=== PATIENT | female | born 1955 | race African-American/Black ===

== ENCOUNTER 2016-08-03 15:08 | Emergency (ER) | payer MEDICARE ==
[~2016-08-03] VITALS: Ht 170.2 cm; Wt 78.2 kg
[~2016-08-03 15:08] MED LIST: IRON325 M1 PO; LEVOTHYROXIN125 MCG PO; LYRICA50 MG PO; MAXZIDE-2537.5 MG/TA PO; METFORMIN500 MG PO; NORVASC10 M1 PO; OS-CAL 500500 M1 PO; POTASSIUM CHLO20 ME1 PO; TRAMADOL HCL50 MG PO; VITAMIN D1000 UNIT PO
[2016-08-03] MEDS ORDERED: NAPROSYN500 MG PO (15:58)
[2016-08-03 16:03] VITALS: BP 116/76
== END 2016-08-03 16:09 | disposition home or self-care (01) ==
LOC: ED 15:08
DX: S53.401A Unspecified sprain of right elbow, initial encounter (principal); I11.0 Hypertensive heart disease with heart failure; I50.9 Heart failure, unspecified; E11.9 Type 2 diabetes mellitus without complications; K21.9 Gastro-esophageal reflux disease without esophagitis; F17.210 Nicotine dependence, cigarettes, uncomplicated; W01.0XXA Fall on same level from slipping, tripping and stumbling without subsequent striking against object, initial encounter; Y92.009 Unspecified place in unspecified non-institutional (private) residence as the place of occurrence of the external cause

== ENCOUNTER 2020-12-12 06:49 | Day surgery (SDC) | payer MEDICARE ==
[~2020-12-12] VITALS: Ht 170.2 cm; Wt 84.4 kg
[~2020-12-12 06:49] MED LIST changes: +24HR ALLERGY R180 MG PO; +CRESTOR10 MG PO; +GABAPENTIN100 MG PO; +MELOXICAM15 MG PO; +NAPROSYN500 MG PO; +PROAIR HFA IN; +TRAMADOL HCL E200 M1 PO; +TRAZODONE50 MG PO; +VITAMIN B-121000 MCG PO
[2020-12-12 09:30] VITALS: BP 107/58
== END 2020-12-12 09:58 | disposition home or self-care (01) ==
LOC: ENDO 06:49
PROVIDERS: ATTEND Surgery
PROC: 0DBH8ZX Excision of Cecum, Via Natural or Artificial Opening Endoscopic, Diagnostic (ICD-10-PCS; principal; 2020-12-12)
DX: Z12.11 Encounter for screening for malignant neoplasm of colon (principal); C18.0 Malignant neoplasm of cecum; K57.30 Diverticulosis of large intestine without perforation or abscess without bleeding; Q43.8 Other specified congenital malformations of intestine; K64.8 Other hemorrhoids; E11.9 Type 2 diabetes mellitus without complications; I10 Essential (primary) hypertension; J45.909 Unspecified asthma, uncomplicated; Z86.010 Personal history of colon polyps; Z79.84 Long term (current) use of oral hypoglycemic drugs; Z88.0 Allergy status to penicillin

== ENCOUNTER 2021-01-19 10:28 | Inpatient (IN) | payer MEDICARE ==
[~2021-01-19] VITALS: Ht 170.2 cm; Wt 84.8 kg
[2021-01-19] MEDS ORDERED: FISH OIL1000 MG PO (11:10)
[2021-01-19] MEDS ORDERED: PRILOSEC20 MG/CAP PO (11:10)
[2021-01-23] VITALS (8 sets, daily range): BP systolic 80–109; BP diastolic 44–64
--- NOTE | 2021-01-23 13:08 | NUR ---
PT ARRIVED VIA STRECTHER ACCOMPANIED BY A BOYD RN. PT SLIGHTLY DROWSY BUT ABLE TO FOLLOW COMMANDS AND ANSWER QUESTIONS. A&O. O2 VIA NC @2L IN PLACE. PT CURRENTLY HYPOTENSIVE BUT ASYMPTOMATIC. CLEAR BREATH SOUNDS UPON AUSCULTATION. ABD BINDER APPLIED BY THIS COO. DRESSING NOTED TO MIDLINE INCISION; PLUS 3 LAPAROSCOPIC INCISIONS REPORTED BY A BOYD RN; DRESSING CDI; X2 MICHELLE DRAINS TO LT SIDE OF ABD; BOTH LABELED #1 #1 WITH MOST OUTPUT. SALDIVAR CATHETER DRAINING VIA GRAVITY WITH [place] COLORED OUTPUT; IMPORVED PER REPORT; EPISODE OF ONE IRRIGATION PREFORMED DOWN IN PACU. HYPOACTIVE BOWEL SOUNDS. LAST BM REPORTED YESTERDAY. BILATERAL SCD IN PLACE. #20G TO RAC HEALTHY AND PATENT; WITH ORDERED IVF INFUSING. ORIENTED PT TO ROOM. ASSESSMENT COMPLETED. DISCUSSED POC. CALL LIGHT WITHIN REACH.
[2021-01-23 13:47] LABS: HEMATOCRIT 27.1 % (37.0-47.0)
--- NOTE | 2021-01-23 14:20 | NUR ---
FAMILY MEMBER AT BEDSIDE VISITING PATIENT.
--- NOTE | 2021-01-23 17:47 | NUR ---
PT C/O PAIN; SCHEDULED IV TORADOL GIVEN. NO OTHER NEEDS AT THIS TIME. CALL LIGHT WITHIN REACH
--- NOTE | 2021-01-23 18:11 | NUR ---
SALDIVAR CATHETER BEING IRRIGATED BY Shy HUNG LPN AT THIS TIME DUE TO DECREASED URINE OUTPUT.
--- NOTE | 2021-01-23 20:00 | NUR ---
PATIENT RESTING IN BED AT THIS TIME. AWAKE ALERT AND ORIENTEDX3. PATIENT WITH O2 VIA NASAL CANNULA IN PLACE WITH O2 SATS AT 100%. PATIENT IS NPO EXCEPT FOR ICE CHIPS. PATIENT WITH IV SITE TO RIGHT AC SITE WITH IVF D51/2NS PATENT AND INFUSING AT 150CC/HR. SITE IS HEALTHY AT THIS TIME. SALDIVAR CATH PATENT AND DRAINING TEA COLORED URINE WITH SEDIMENT IN TUBING. 2 MICHELLE DRAINS INTACT TO LEFT ABD. #1 DRAINED FOR 150CC OF CLOUDY SEROUS FLUID. #2 DRAINING BLOODY FLUID. ABD DRESSING INTACT WITH ABD BINDER IN PLACE. SCD'S IN PLACE. ENCOURAGED USE OF IS Q1H WHILE AWAKE IN REPS OF 10-VERBALIZES UNDERSTANING. SAFETY PRECAUTIONS REINFORCED. CALL LIGHT IN REACH. WILL CONT TO MONITOR.
--- NOTE | 2021-01-23 22:30 | NUR ---
PATIENT ASSISTED OOB TO THE CHAIR-STEADY GAIT USING HER PILLOW TO SPLINT HER INCISION. PATIENT ABLE TO SIT UP FOR APPROX 30 MINUTES AND TOLERATED WELL. USING HER IS INSTRUCTED IN REPS OF 10 OR MORE. O2 SATS ARE IN HIGH 90'S-97-98 ON ROOM AIR. SALDIVAR PATENT AND DRAINING CLOUDY TEA COLORED URINE. ABD BINDER REMAINS IN PLACE. IVF D51/2 NS INFUSING OREDED VIA RAC SITE. ANTIBIOTICS GIVEN ORDERED. ASSISTED BACK INTO BED AND PATIENT MEDICATED FOR PAIN WITH DILAUDID 1MG IVP FOR 6/10 PAIN SCALE. SCD'S [address] PL[address] MICHELLE IN PLACE TO LEFT ABD, CALL LIGHT IN REACH. WILL CONT TO MONITOR.
--- NOTE | 2021-01-23 23:54 | NUR ---
PATIENT RESTING IN BED AT THIS TIME-STATES THAT HER PAIN IS NOW 3-MEDICATED WITH TORADOL 15MG IVP ORDERED. IVF PATENT AND INFUSING VIA RAC SITE AT 150CC/HR. SALDIVAR PATENT AND DRAINING ADAM U RINE WITH SEDIMENT. O2 OFF WITH O2 SAT OF 98%. MICHELLE DRAINS INTACT AND DRAINING CLOUDY SEROUS FLUID. SAFETY PRECAUTIONS REINFORCED. WILL CONT TO MONITOR.
[2021-01-24] VITALS: BP 94/57
--- NOTE | 2021-01-24 01:42 | NUR ---
PATIENT RESTING IN BED-MICHELLE DRAIN #1 DRAINED FOR 75CC OF PINK TINGED FLUID AND MICHELLE DRAIN#2 DRAINED FOR 10CC OF BLOODY DRAINAGE. MEDICATED PATIENT WITH ZOFRAN 4MG IVP FOR NAUSEA AND WITH DILAUDID 1MG IVP FOR POST-OP PAIN. IVF PATENT AND DRAINING TEA COLORED URINE WITH SEDIMENT. ABD BINDER IN PLACE. CALL LIGHT IN REACH. WILL CONT TO MONITOR.
--- NOTE | 2021-01-24 03:38 | NUR ---
PATIENT RESTING IN BED AT THIS TIME-AWAKE WITH NO COMPLAINTS. IVF D51/2NS PATENT AND INFUSING VIA RAC SITE AT 150CC/HR. SALDIVAR IS PATENT AND DRAINING TEA COLORED URINE WITH SEDIMENT. MICHELLE DRAINSX2 REMAIN IN PLACE. ABD BINDER IN PLACE. SCD'S ORDERED. REMAINS NPO EXCEPT ICE CHIPS. CALL LIGHT IN REACH. WILL CONT TO MONITOR.
[2021-01-24 04:00] VITALS: BP 105/60
[2021-01-24 05:21] LABS: HEMATOCRIT 25.1 % (37.0-47.0); HEMOGLOBIN 7.5 g/dl (12.0-16.0); IMMATURE GRANULOCYTES 0.1 % (0.0-5.0); MEAN CELL VOLUME 69.9 fL CALC (80.0-100.0); MEAN CORPUSCULAR HGB 20.9 pG CALC (26.0-32.0); MEAN CORPUSCULAR HGB CONC 29.9 g/dL CAL (32.0-36.0); NEUT# 10.79 thou/uL (2.00-7.15); RED BLOOD COUNT 3.59 mill/uL (4.20-5.60); RED CELL DISTRI WIDTH 20.6 % (11.5-15.5)
[2021-01-24 05:35] LABS: ANION GAP 11 (6-22 (CALC)); BUN 9 mg/dL (8-23); BUN/CREATININE RATIO 12 (12-20 (CALC)); CARBON DIOXIDE 23 mmol/l (22-30); CHLORIDE 107 mmol/l (95-108); CREATININE 0.7 mg/dL (0.5-1.0); GFR > 60 ML/MIN (>=60 (CALC)); GFR FOR AFR.AMER. > 60 ML/MIN (>=60 (CALC)); SODIUM 137 mmol/l (137-146)
--- NOTE | 2021-01-24 06:00 | NUR ---
PATIENT RESTING IN BED. STATES THAT HER PAIN IS UNDER CONTROL AT THIS TIME. TORADOL 15MG IVP GIVEN ORDERED. ANTIBIOTICS GIVEN ORDERED. MICHELLE DRAIN OUTPUT FOR THIS SHIFT WAS MICHELLE#1-270CC OF PINK/PALE SEROUS FLUID. MICHELLE#2-15CC OF BLOODY FLUID. SALDIVAR OUTPUT FOR THIS SHIFT WAS 250CC. IVF D51/2NS INFUSING AT 150CC/HR. O2 SATS AT 96% ON ROOM AIR. CALL LIGHT IN REACH. WILL CONT TO MONITOR.
[2021-01-24 08:16] VITALS: BP 93/51
--- NOTE | 2021-01-24 08:17 | NUR ---
ASSESSMENT DONE. PATIENT IS ALERT AND ORINET X3. PATIENT DENIES PAIN AT THIS TIME. DRESSING IN ABD IS CDI AND ABD BINDER IN PLACE. MICHELLE #1 HAS PINK/PALE SEROUS AND MICHELLE #2 IS BLOODY FLUID . PATIENT USE THE INCENTIVE SPIROMETER UP TO 1000ML. SALDIVAR IS A PATENT WITH TEA COLOR URINE. SCD IN PLACE. ICE CHIPS PROVIDED. PATIENT DENIES ANY OTHER NEEDS AT THIS TIME. CALL LIGHT IN REACH.
--- NOTE | 2021-01-24 12:15 | NUR ---
PATIENT STATED PAIN IN ABD 05/24. MEDICATED PATIENT WITH TORADOL. PATIENT DENIES ANY OTHER NEEDS AT THIS TIME. CALL LIGHT IN REACH.
--- NOTE | 2021-01-24 13:25 | NUR ---
ASSISTED PATIENT TO SIT IN THE RECLINER. PATIENT TOLERATED WELL. PATIENT STATED PAIN MEDICATION HELPED. FAMILY MEMBER IN ROOM. PATIENT DENIES ANY OTHER NEEDS AT THIS TIME. CALL LIGHT IN REACH.
--- NOTE | 2021-01-24 16:00 | NUR ---
PATIENT IS SITTING IN THE RECLINER WITH NO DISTRESS NOTED. PATIENT DENIES NEEDS AT THIS TIME. CALL LIGHT IN REACH.
[2021-01-24 16:10] VITALS: BP 90/52
[2021-01-24 18:58] VITALS: BP 96/54
--- NOTE | 2021-01-24 20:00 | NUR ---
PATIENT RESTING IN BED AT THIS TIME WITH HOB ELEVATED. AWAKE ALERT AND ORIENTEDX3. PATIENT WITH NO COMPLAINTS OF PAIN AT THIS TIME. PATIENT WITH IVF D51/2NS PATENT AND INFUSING VIA RIGHT AC SITE AT 150CC/HR. SITE REMAINS HEALTHY AT THIS TIME. SALDIVAR CATH PATENT AND DRAINING TEA COLORED URINE WITH SEDIMENT. MICHELLE DRAINS TO LEFT ABD INTACT. #1-TEA COLORED, #2-BLOODY. ABD DRESSING IS CDI-NO DRAINAGE NOTED. ABD IS SOFT WITH ACTIVE BS PRESENT. ABD BINDER ADJUSTED. SCD'S IN PLACE. ENCOURAGED US OF IS Q1H WHILE AWAKE. ABLE TO DEMONSTRATE PROPER USE OF THE DEVICE. LUNGS ARE CLEAR. PATIENT CONT TO TAKE ICE CHIPS IN SMALL AMTS-TOLERATED WELL. SAFETY PRECAUTIONS REINFORCED. CALL LIGHT IN REACH. WILL CONT TO MONITOR.
[2021-01-25 00:10] VITALS: BP 116/67
--- NOTE | 2021-01-25 00:19 | NUR ---
PATIENT RESTING IN BED AT THIS TIME-IVF PATENT AND INFUSING VIA RAC AT 150CC/HR. SALDIVAR PATENT AND DRAINING TEA COLORED URINE WITH SEDIMENT-URINE OUTPUT BETTER TONIGHT THAN LAST NIGHT. MICHELLE DRAINS INTACT WITH DECREASED OUTPUT COMPARED TO LAST NIGHT. ABD DRESSING INTACT AND ABD BINDER IN PLACE. CONT TO TAKE ICE CHIPS AND SIPS OF H2O TO TAKE PO MEDS. TORADOL GIVEN SCHEDULED. SCD'S IN PLACE. SAFETY PRECAUTIONS REINFORCED. CALL LIGHT IN REACH. WILL CONT TO MONITOR.
--- NOTE | 2021-01-25 03:55 | NUR ---
PATIENT RESTING IN BED AT THIS TIME WITH EYES CLOSED. RESPS ARE EVEN AND UNLABORED. IVF D51/2NS PATENT AND INFUSING ORDERED VIA RAC SITE-NEW BAG HUNG AND INFUSING AT 150CC/HR. SALDIVAR PATENT AND DRAINING TEA COLORED URINE WITH SEDIMENT. ABD BINDER IN PLACE. MICHELLE DRAINX2 IN PLACE. SCD'S IN PLACE. CALL LIGHT IN REACH. WILL CONT TO MONITOR.
[2021-01-25 04:00] VITALS: BP 111/60
[2021-01-25 05:30] LABS: HEMATOCRIT 24.6 % (37.0-47.0); HEMOGLOBIN 7.4 g/dl (12.0-16.0); MEAN CELL VOLUME 70.1 fL CALC (80.0-100.0); MEAN CORPUSCULAR HGB 21.1 pG CALC (26.0-32.0); MEAN CORPUSCULAR HGB CONC 30.1 g/dL CAL (32.0-36.0); RED BLOOD COUNT 3.51 mill/uL (4.20-5.60); RED CELL DISTRI WIDTH 20.4 % (11.5-15.5)
[2021-01-25 05:41] LABS: ANION GAP 10 (6-22 (CALC)); BUN 6 mg/dL (8-23); BUN/CREATININE RATIO 9 (12-20 (CALC)); CARBON DIOXIDE 24 mmol/l (22-30); CHLORIDE 110 mmol/l (95-108); CREATININE 0.7 mg/dL (0.5-1.0); GFR > 60 ML/MIN (>=60 (CALC)); GFR FOR AFR.AMER. > 60 ML/MIN (>=60 (CALC)); MAGNESIUM 1.7 mg/dL (1.6-2.3); SODIUM 141 mmol/l (137-146)
--- NOTE | 2021-01-25 06:00 | NUR ---
PATIENT MIN ASSIST OOB TO THE CHAIR-TOLERATED WELL. PATIENT IS USING IS INSTRUCTED. PATIENT WITH SALDIVAR NOW DRAINING PINK TINGED/TEA COLORED URINE. MICHELLE DRAIN#1-DRAINED 40CC THIS SHIFT OF PINK TINGED TEA COLORED FLUID. MICHELLE#2 DRAINED 5CC OF BLOODY DRAINAGE. ABD BINDER IN PLACE. IVF PATENT AND INFUSING VIA RAC SITE AT I50CC/HR. ANTIBIOTICS IN PROCESS. PATIENT WITH NO COMPLAINTS OF PAIN AT THIS TIME. CALL LIGHT IN REACH. WILL CONT TO ADARSH.
--- NOTE | 2021-01-25 07:00 | NUR ---
RECIEVED REPORT FROM BUNNY TAPIA
[2021-01-25 07:40] VITALS: BP 93/52
--- NOTE | 2021-01-25 08:33 | NUR ---
PT SITTING UP IN CHAIR. PT IS A/O X3. ASSESSMENT AND VITALS COMPLETED. BP 93/52, HR 99, O2 95 ON ROOM AIR. RESPIRATIONS ARE EVEN AND UNLABORED. LUNG SOUNDS ARE CLEAR. BOWEL SOUNDS ARE ACTIVE. HEART RHYTHM NORMAL WITH TELE IN PLACE. #20G RAC INFUSING WITH IVF PER ORDER, SITE REMAINS HEALTHY AND PATENT. SKIN INTACT. TRACE EDEMA NOTED. SURGICAL DRESSING REMAINS CDI. ABD BINDER IN PLACE. MICHELLE DRAIN X2 NOTED.SALDIVAR CATH IN PLACE, TEA COLOR URINE NOTED. ACCUCHECK REUSLTING IN 113. PT DENIES OF ANY PAINS OR DISCOMFORTS AT THIS TIME.ALL SAFETY PRECAUTIONS ARE IN PLACE WITH CALL LIGHT IN REACH.WILL CONTINUE TO MONITOR
--- NOTE | 2021-01-25 10:58 | NUR ---
DR MORRIS AND PONCE,ANPHYLLIS AT BEDSIDE
--- NOTE | 2021-01-25 11:34 | NUR ---
ABD DRESSING CHANGED. NEW DRY DRESSING APPLIED REMAINS CDI. MICHELLE EMPTIED. 20ML FROM JP1, 5ML FROM JP2. ABD BINDER REAPPLIED.PT PREVIOUSLY MEDICATED WITH TORADOL. SALDIVAR CATH REMAINS IN PLACE, DARK TEA COLOR URINE NOTED. PT DENIES OF ANY ADDITIONAL NEEDS ALL SAFETY PRECAUTIONS ARE IN PLACE WITH CALL LIGHT IN REACH. WILL CONTINUE TO MONTIOR.
[2021-01-25 14:55] VITALS: BP 97/61
--- NOTE | 2021-01-25 16:40 | NUR ---
PT SITTING UP IN CHAIR ON PHONE. RESPIRATIONS ARE EVEN AND UNLABORED WITH NO DISTRESS NOTED. SURGICAL DRESSING AND ABD REMAINS IN PLACE. MICHELLE BULB X2 TO SUCTION. SALDIVAR CATH REMAINS IN PLACE, TEA COLOR URINE NOTED. PT DENIES OF ANY PAINS OR DISCOMFORTS AT THIS TIME. ALL SAFETY PRECAUTIONS ARE IN PLACE WITH CALL LIGHT IN REACH. WILL CONTINUE TO MONITOR.
[2021-01-25 18:00] VITALS: BP 116/65
[2021-01-25 19:00] VITALS: BP 116/65
--- NOTE | 2021-01-25 19:40 | NUR ---
PATIENT ALERT AND ORIENTED. ABLE TO MAKE NEEDS KNOWN. ASSESSMENT COMPLETE. LARGE DRY DRESSING OBSERVED TO PATIENTS CENTER ABDOMEN. ABDOMINAL BINDER REMAINS IN PLACE. MICHELLE DRAINS TIMES [address] ON LEFT SIDE OF ABDOMEN. ENCOURAGED PATIENT TO ASK FOR ASSISTANCE FOR SAFETY PURPOSES. REAPPLIED PATIENTS SCDS. CALL LIGHT AND BELONGINGS REMAIN IN PLACE.
[2021-01-26] VITALS: BP 108/56
--- NOTE | 2021-01-26 00:15 | NUR ---
RESTING IN BED QUIETLY WATCHING TV. NO COMPLAINTS VOICED AT THIS TIME. CALL LIGHT AND BELONGINGS REMAIN IN REACH.
[2021-01-26 04:00] VITALS: BP 108/61
--- NOTE | 2021-01-26 04:30 | NUR ---
RESTING IN BED QUIETLY. NO COMPLAINTS OF PAIN OR SOB NOTED AT THIS TIME. BELONGINGS AND CALL LIGHT WITHIN REACH.
[2021-01-26 05:53] LABS: ANION GAP 10 (6-22 (CALC)); BUN 4 mg/dL (8-23); BUN/CREATININE RATIO 7 (12-20 (CALC)); CARBON DIOXIDE 24 mmol/l (22-30); CHLORIDE 110 mmol/l (95-108); CREATININE 0.6 mg/dL (0.5-1.0); GFR > 60 ML/MIN (>=60 (CALC)); GFR FOR AFR.AMER. > 60 ML/MIN (>=60 (CALC)); HEMATOCRIT 23.3 % (37.0-47.0); MEAN CELL VOLUME 68.9 fL CALC (80.0-100.0); MEAN CORPUSCULAR HGB 20.7 pG CALC (26.0-32.0); POTASSIUM 2.9 mmol/l (3.5-5.1); RED BLOOD COUNT 3.38 mill/uL (4.20-5.60); RED CELL DISTRI WIDTH 20.7 % (11.5-15.5); SODIUM 141 mmol/l (137-146)
--- NOTE | 2021-01-26 06:28 | NUR ---
CALLED DR LOVELACE ON CRITICAL HGB OF 7.0. NO NEW ORDERS AT THIS TIME.
--- NOTE | 2021-01-26 07:00 | NUR ---
RECIEVED REPORT FROM BUNNY BRIAN
[2021-01-26 07:44] VITALS: BP 105/58
--- NOTE | 2021-01-26 07:44 | NUR ---
PT RESTING IN SEMI FOWLERS POSITION. PT IS A/O X3. ASSESSMENT AND VITALS COMPLETED. BP 105/58, HR 103, O2 98% ON ROOM AIR. RESIRATIONS ARE EVEN AND UNLABORED WITH NO DISTRESS NOTED. LUNG SOUNDS ARE CLEAR. HEART RHYTHM NORMAL. BOWEL SOUNDS ARE ACTIVE, LBM 01/26/21. PULSES STRONG.#20G RAC INFUSING WITH IVF PER ORDER, SITE REMAINS HEALTHY AND PATENT. PT DENIES OF ANY PAINS OR DISCOMFORTS. ABD DRESSING REMAINS CDI. JPX2 NOTED WITH MINMAL OUTPUT, BULB TO SUCTION. ABD BINDER IN PLACE. ALL SAFETY PRECAUTIONS ARE IN PLACE WITH CALL LIGHT IN REACH. WILL CONTINUE TO MONITOR.
--- NOTE | 2021-01-26 10:33 | NUR ---
DR MORRIS AND PETE,ANPHYLLIS AT BEDSIDE
--- NOTE | 2021-01-26 12:10 | NUR ---
DR LOVELACE AT BEDSIDE
--- NOTE | 2021-01-26 12:16 | NUR ---
PT SITTING UP IN RECYLINER ON PHONE. RESPIRATIONS ARE EVEN AND UNLABORED WITH NO DISTRESS NOTED. #20G RAC REMAINS INFUSING WITH IVF PER ORDER, SITE REMAINS HEALTHY AND PATENT. SALDIVAR CATH IN PLACE, TUBING PATENT. PT DENIES OF ANY PAINS OR DISCOMFORTS AT THIS TIME. ALL SAFETY PRECAUTIONS ARE IN PLACE WITH CALL LIGHT IN REACH. WILL CONTINUE TO MONITOR
--- NOTE | 2021-01-26 15:01 | NUR ---
#20G RAC INFILTRATED. NEW #22G RH STARTED, SITE APPEARS HEALTHY AND PATENT. MICHELLE DRAIN EMPTIED AT THIS TIME. 30ML FROM JP1 AND 15ML FROM JP2. BULB RESUCTIONED. DRESSING TO ABD REMAINS CDI. SALDIVAR CATH REMAINS IN PLACE, 1000ML OF LIGHT TEA COLOR URINE . WILL CONTINUE TO MONITOR
--- NOTE | 2021-01-26 16:13 | NUR ---
PT SITTING UP IN CHAIR WATCHING TV. RESPIRATIONS ARE EVEN AND UNLABORED WITH NO DISTRESS NOTED. #22G RH REMAINS IN PLACE. ABD DRESSING REMAINS CDI WITH ABD IN PLACE. SALDIVAR CATH IN PLACE. MICHELLE DRAIN X2 SUCTION WITH MINIMAL OUPUT. PT DENIES OF ANY PAINS OR DISCOMFORTS AT THIS TIME. ALL SAFETY PRECAUTIONS ARE IN PLACE WITH CALL LIGHT IN REACH. WILL CONTINUE TO MONITOR
--- NOTE | 2021-01-26 18:45 | NUR ---
REPORT RECEIVED FROM Rhona CRESPO LPN.
[2021-01-26 19:28] VITALS: BP 107/59
--- NOTE | 2021-01-26 20:30 | NUR ---
PATIENT ALERT AND ORIENTED X3, RESTING IN SEMI FOLWERS. CLEAR LUNG SOUNDS, NORMAL HEART SOUNDS. ACTIVE BOWEL, LAST REPORTED MOVEMENT 01/26/21. PATIENT HAS CDI TO ABDOMEN, WITH MICHELLE DRAINS X2. NO COMPLAINTS OF PAIN. PATIENT TOLERATED REGULAR DIET FOR DINNER TONIGHT. SALDIVAR DRAINING TEA COLORED URINE TO GRAVITY, UNKINKED AND FLOWING. CARE PLAN REVIEWED WITH PATIENT, CALL LIGHT AND BEDSIDE TABLE WITHIN REACH.
--- NOTE | 2021-01-26 23:30 | NUR ---
PATIENT SLEEPING COMOFRTABLY, AWOKEN BY WRITTER, DENIES ANY CURRENT NEEDS. CALL LIGHT AND BEDSIDE TABLE WITHIN REACH.
[2021-01-27 04:00] VITALS: BP 104/61
--- NOTE | 2021-01-27 04:58 | NUR ---
PATIENT RESTIG COMOFORTABLY, DENIES ANY PAIN OR FURTHER NEEDS AT THIS TIME. CALL LIGHT AND BEDSIDE TABLE WITHIN REACH.
--- NOTE | 2021-01-27 07:00 | NUR ---
RECIEVED REPORT FROM BUNNY SANCHEZ
[2021-01-27 08:24] VITALS: BP 105/57
--- NOTE | 2021-01-27 08:24 | NUR ---
PT SITTING UP IN CHAIR. PT IS A/O X3. ASSESSMENT AND VITALS COMPLETED. BP 105/57, HR 94, O2 99% ON ROOM AIR. RESPIRATIONS ARE EVEN AND UNLABORED WITH NO DISTRESS NOTED. LUNG SOUNDS ARE CLEAR. HEART RHYTHM NORMAL.BOWEL SOUNDS ARE ACTIVE, REPORT FROM BM X2. #22 RH FLUSHED, SITE APPEARS HEALTHY AND PATENT.ABD DRESSING REMAINS CDI.. ABD BINDER IN PLACE. MICHELLE DRAIN NOTED, MINMIAL BLOODY DRAINAGE. SALDIVAR CATH REMAINS IN PLACE. PT DENIES OF ANY PAINS OR DISCOMFORTS AT THIS TIME. ALL SAFETY PRECAUTIONSA RE IN PLACE WITH CALL LIGHT IN REACH. WILL CONTINUE TO MONITOR
[2021-01-27 09:27] LABS: HEMATOCRIT 25.5 % (37.0-47.0); HEMOGLOBIN 7.5 g/dl (12.0-16.0); MEAN CELL VOLUME 70.2 fL CALC (80.0-100.0); MEAN CORPUSCULAR HGB 20.7 pG CALC (26.0-32.0); MEAN CORPUSCULAR HGB CONC 29.4 g/dL CAL (32.0-36.0); RED BLOOD COUNT 3.63 mill/uL (4.20-5.60); RED CELL DISTRI WIDTH 20.8 % (11.5-15.5)
--- NOTE | 2021-01-27 09:40 | NUR ---
DR LOVELACE AT BEDSIDE
--- NOTE | 2021-01-27 10:00 | NUR ---
DR MORRIS AND PETE,ANPHYLLIS AT BEDSIDE
[2021-01-27] MEDS ORDERED: FERROUS SULFAT325 MG PO (10:03)
[2021-01-27] MEDS ORDERED: PERCOCET 5/325M1 TAB PO (10:04)
[2021-01-27] MEDS ORDERED: KLOR-CON M2020 MEQ PO (10:14)
--- NOTE | 2021-01-27 12:44 | NUR ---
PT EDUCATED ON DC INSTRUCTIONS AND NEW MEDICATIONS. PT VERBALIZED UNDERSTANDING. #22G RH REMOVED WITH CATH STILL INTACT. MICHELLE X2 REMOVED, PT TOLERATED WELL. DRESSING TO JPREMOVAL AND MIDLINE REMAINS CDI WITH ABD BINDER. LEG BAG APPLIED TO SALDIVAR CATH. PT EDUACTED ON EMPTYING. PT VERBALIZED UNDERSTANDING. PT REQUEST FOR PAIN MEDICATION. PT MEDICATED PER EMAR. PT INSTRUCTED TO WAIT ABOUT 30 MIN BEFORE CALLING RIDE. ALL SAFETY PRECAUTIONS ARE IN PLACE WITH CALL LIGHT IN REACH. WILL CONTINUE TO MONITOR
--- NOTE | 2021-01-27 13:36 | NUR ---
Discharge instructions given. Patient verbalizes understanding of same. Discharged in stable condition via Wheelchair to Home with *Other. All belongings sent with pt. PT DC HOME IN STABLE CONDITION VIA WHEELCHAIR ACCOMPAINED BY KENNETH YAO WITH ALL DC INSTRUCTIONS AND PERSONAL BELONGINGS. DRESSING REMAINS CDI. SALDIVAR CATH WITH LEG BAG INPLACE.
== END 2021-01-27 13:36 | disposition home or self-care (01) | DRG 330 ==
LOC: MS2 01-23 08:15 → OR 01-23 08:35 → MS2 01-27 13:36
PROVIDERS: Nurse Practitioner; ADMIT Surgery; ATTEND Surgery
PROC: 0DBF0ZZ Excision of Right Large Intestine, Open Approach (ICD-10-PCS; principal; 2021-01-23)
PROC: 0DNL4ZZ Release Transverse Colon, Percutaneous Endoscopic Approach (ICD-10-PCS; 2021-01-23)
PROC: 0TBB0ZZ Excision of Bladder, Open Approach (ICD-10-PCS; 2021-01-23)
PROC: 3E02340 Introduction of Influenza Vaccine into Muscle, Percutaneous Approach (ICD-10-PCS; 2021-01-25)
DX: C18.0 Malignant neoplasm of cecum (principal); C79.11 Secondary malignant neoplasm of bladder; D62 Acute posthemorrhagic anemia; R50.82 Postprocedural fever; E87.6 Hypokalemia; I10 Essential (primary) hypertension; E78.00 Pure hypercholesterolemia, unspecified; J45.909 Unspecified asthma, uncomplicated; F17.200 Nicotine dependence, unspecified, uncomplicated; Z79.84 Long term (current) use of oral hypoglycemic drugs; Z23 Encounter for immunization
CPT/HCPCS: J0131; J1650; J1756; J2710

== ENCOUNTER 2022-12-23 21:37 | Emergency (ER) | payer MEDICARE ==
[~2022-12-23] VITALS: Ht 170.2 cm; Wt 87.0 kg
[~2022-12-23 21:37] MED LIST changes: +FERROUS SULFAT325 MG PO; +FISH OIL1000 MG PO; +KLOR-CON M2020 MEQ PO; +PERCOCET 5/325M1 TAB PO; +PRILOSEC20 MG/CAP PO
[2022-12-23] MEDS ORDERED: ULTRAM50 MG PO (22:29)
[2022-12-23 22:33] VITALS: BP 134/67
== END 2022-12-23 22:51 | disposition home or self-care (01) ==
LOC: ED 21:37
PROC: 2W3CX1Z Immobilization of Right Lower Arm using Splint (ICD-10-PCS; principal; 2022-12-23)
DX: S52.591A Other fractures of lower end of right radius, initial encounter for closed fracture (principal); I10 Essential (primary) hypertension; E11.9 Type 2 diabetes mellitus without complications; F17.200 Nicotine dependence, unspecified, uncomplicated; W01.0XXA Fall on same level from slipping, tripping and stumbling without subsequent striking against object, initial encounter; Y92.007 Garden or yard of unspecified non-institutional (private) residence as the place of occurrence of the external cause; Z79.84 Long term (current) use of oral hypoglycemic drugs